=== PATIENT | male | born 1980 | race Hispanic/Latino ===

== ENCOUNTER 2022-05-14 08:30 | Inpatient (IN) | payer BC ==
[2022-05-10 15:17] LABS: BASOPHILS # (AUTO) 0.1 (0.0-0.1); EOSINOPHILS # (AUTO) 0.8 (0.0-0.4); EOSINOPHILS % 8.9 % (0.0-6.0); HEMATOCRIT 44.9 % (38.2-49.6); HEMOGLOBIN 14.5 g/dL (14.0-18.0); LYMPHOCYTES # (AUTO) 2.7 (1.0-3.2); LYMPHOCYTES % 29.5 % (18.0-39.1); MEAN CORPUSCULAR HEMOGLOBIN 30.3 pg (28-32); MEAN CORPUSCULAR HGB CONC 32.3 g/dL (31-35); MEAN CORPUSCULAR VOLUME 93.9 fL (81-99); MONOCYTES # (AUTO) 0.6 (0.2-0.8); MONOCYTES % 6.1 % (4.4-11.3); NEUTROPHILS % 54.3 % (38.7-80.0); PLATELET COUNT 410 x10e3/uL (140-360); RED BLOOD COUNT 4.78 x10e6/uL (4.3-5.7)
[2022-05-10 15:39] LABS: ANION GAP 15.6 mmol/L (8-16); CREATININE, SERUM 0.92 mg/dL (0.72-1.25); POTASSIUM 3.6 mmol/L (3.5-5.1)
[~2022-05-14] VITALS: Ht 157.5 cm; Wt 81.6 kg
[~2022-05-14 08:30] MED LIST: BRONKAID DUAL1 EACH PO; PROVENTIL HFA6.7 GM INH
[2022-05-14] MEDS ORDERED: BUPIVACAINE HCL 0.25% 10ML MPF VIAL INJ ONE (09:27)
[2022-05-14] MEDS ORDERED: ONDANSETRON HCL INJ 2MG/ML 2ML 2 MG/ML VIAL ONE (12:37)
[2022-05-14] MEDS ORDERED: SEVOFLURANE INHAL SOLN 250 ML PEN BTL ONE (12:37)
[2022-05-14] MEDS ORDERED: GLYCOPYRROLATE INJ 0.2 MG/ML VIAL ONE (12:37)
[2022-05-14] MEDS ORDERED: PROPOFOL IV EMULSION 10 MG/ML 20 ML VIAL ONE (12:37)
[2022-05-14] MEDS ORDERED: NEOSTIGMINE 1 MG/ML 10ML VIAL ONE (12:37)
[2022-05-14] MEDS ORDERED: DEXAMETHASONE SOD PHOS INJ 4 MG/ML SDV ONE (12:37)
[2022-05-14] MEDS ORDERED: ALBUTEROL SULFATE HFA 8GM INHALATION AEROSOL INH ONE (12:37)
[2022-05-14] MEDS ORDERED: POVIDONE IODINE 0.05% 0.05 % ML PO ONE (12:37)
[2022-05-14] MEDS ORDERED: LIDOCAINE HCL 2% LOCAL INJ 5 ML SDV VIAL INJ ONE (12:37)
[2022-05-14] MEDS ORDERED: ATROPINE SULFATE 1 MG/ML VIAL ONE (12:37)
[2022-05-14] MEDS ORDERED: FENTANYL CITRATE/PF 100MCG/2 ML INJ ONE ×2 (13:16→16:09)
[2022-05-14] MEDS ORDERED: MIDAZOLAM HCL 2 MG/2 ML VIAL ONE (13:16)
[2022-05-14] MEDS ORDERED: BUPIVACAINE 0.25% 30ML SDV ONE (13:16)
[2022-05-14] MEDS ORDERED: ALBUTEROL SULFATE HFA 8GM INHALATION AEROSOL INH PRN (15:30)
[2022-05-14] MEDS ORDERED: HYDROMORPHONE 1MG/1ML INJ ONE (16:55)
[2022-05-14] MEDS: HYDROMORPHONE 1MG/1ML INJ IV PRN (17:51)
[2022-05-14] MEDS: SODIUM CHLORIDE 0.9% 1000ML 1,000 ML IV SCH (17:51)
[2022-05-14 18:02] VITALS: BP 125/86
[2022-05-14 18:11] VITALS: BP 125/86
[2022-05-14] MEDS: KETOROLAC TROMETHAMINE 30 MG/ML VIAL IV PRN (20:36)
[2022-05-14] MEDS: ONDANSETRON HCL INJ 2MG/ML 2ML 2 MG/ML VIAL IV PRN (21:14)
[2022-05-14 21:43] VITALS: BP 120/72
[2022-05-14 21:44] VITALS: BP 120/72
[2022-05-14] MEDS: HYDROCODONE/APAP 7.5MG-325MG 1 EA TAB PO PRN (22:40)
[2022-05-14] MEDS: LEVALBUTEROL HCL SOLN NEBU 0.63 MG/3 ML NEB INH PRN (22:50)
[2022-05-15] VITALS (8 sets, daily range): BP systolic 95–124; BP diastolic 64–79
[2022-05-15] MEDS: SODIUM CHLORIDE 0.9% 1000ML 1,000 ML IV SCH ×3 (01:53→21:41)
[2022-05-15] MEDS: ONDANSETRON HCL INJ 2MG/ML 2ML 2 MG/ML VIAL IV PRN ×2 (01:54→21:56)
[2022-05-15] MEDS: HYDROMORPHONE 1MG/1ML INJ IV PRN ×4 (01:54→21:56)
[2022-05-15 05:03] LABS: BASOPHILS % 0.1 % (0.0-1.0); EOSINOPHILS % 0.1 % (0.0-6.0); HEMATOCRIT 38.4 % (38.2-49.6); HEMOGLOBIN 12.2 g/dL (14.0-18.0); LYMPHOCYTES # (AUTO) 2.3 (1.0-3.2); LYMPHOCYTES % 16.9 % (18.0-39.1); MEAN CORPUSCULAR HGB CONC 31.8 g/dL (31-35); MEAN CORPUSCULAR VOLUME 94.6 fL (81-99); MONOCYTES # (AUTO) 0.9 (0.2-0.8); MONOCYTES % 6.5 % (4.4-11.3); NEUTROPHILS # (AUTO) 10.5 (2.1-6.9); PLATELET COUNT 347 x10e3/uL (140-360); RED BLOOD COUNT 4.06 x10e6/uL (4.3-5.7); RED CELL DISTRIBUTION WIDTH 12.5 % (11.7-14.4)
[2022-05-15] MEDS: HYDROCODONE/APAP 7.5MG-325MG 1 EA TAB PO PRN ×2 (05:15→17:33)
[2022-05-15 05:37] LABS: ANION GAP 11.5 mmol/L (8-16); CREATININE, SERUM 0.76 mg/dL (0.72-1.25); POTASSIUM 4.5 mmol/L (3.5-5.1)
[2022-05-15] MEDS: EPHEDRINE SULFATE PO SCH (09:00)
[2022-05-15] MEDS: [UNRECOGNIZED DRUG - OTHER] PO SCH (09:00)
[2022-05-15] MEDS: GUAIFENESIN PO SCH (09:00)
[2022-05-15] MEDS: LEVALBUTEROL HCL SOLN NEBU 0.63 MG/3 ML NEB INH PRN (12:15)
[2022-05-15] MEDS: KETOROLAC TROMETHAMINE 30 MG/ML VIAL IV PRN (14:50)
[2022-05-16] VITALS: BP 108/64
[2022-05-16] MEDS: ONDANSETRON HCL INJ 2MG/ML 2ML 2 MG/ML VIAL IV PRN ×2 (02:29→07:45)
[2022-05-16] MEDS: HYDROMORPHONE 1MG/1ML INJ IV PRN ×3 (02:29→20:50)
[2022-05-16 04:00] VITALS: BP 113/64
[2022-05-16] MEDS: HYDROCODONE/APAP 7.5MG-325MG 1 EA TAB PO PRN ×2 (05:22→18:15)
[2022-05-16] MEDS: LEVALBUTEROL HCL SOLN NEBU 0.63 MG/3 ML NEB INH PRN (07:12)
[2022-05-16 07:52] VITALS: BP 117/74
[2022-05-16] MEDS: SODIUM CHLORIDE 0.9% 1000ML 1,000 ML IV SCH ×2 (08:01→17:39)
[2022-05-16] MEDS: EPHEDRINE SULFATE PO SCH (08:01)
[2022-05-16] MEDS: GUAIFENESIN PO SCH (08:01)
[2022-05-16] MEDS: [UNRECOGNIZED DRUG - OTHER] PO SCH (08:01)
[2022-05-16 11:53] VITALS: BP 132/82
[2022-05-16] MEDS: KETOROLAC TROMETHAMINE 30 MG/ML VIAL IV PRN (12:30)
[2022-05-16 15:30] VITALS: BP 115/84
[2022-05-17] MEDS ORDERED: PANTOPRAZOLE SOD 40 MG TABEC PO SCH (07:30)
== END 2022-05-16 21:24 | disposition home or self-care (01) | DRG 355 ==
LOC: OR 08:30 → PACU V 15:29 → MED/SURG 17:15 → OBSVTOIN 05-16 15:12
PROVIDERS: ADMIT Surgery; ATTEND Surgery
PROC: 0WUF0JZ Supplement Abdominal Wall with Synthetic Substitute, Open Approach (ICD-10-PCS; principal; 2022-05-14 13:11)
DX: K43.9 Ventral hernia without obstruction or gangrene (principal); Z20.822 Contact with and (suspected) exposure to COVID-19
CPT/HCPCS: 0223U; 36415; 80048; 85025; 88302; 93005; 94640; 94799; C1781; G0378; J0461; J0690; J1100; J1170; J1885; J2001; J2250; J2405; J2710; J3010; J7030